=== PATIENT | male | born 1990 | race Caucasian/White ===

== ENCOUNTER 2017-12-10 15:54 | Emergency (ER) | payer OTHER ==
[2017-12-10 16:05] VITALS: Ht 175.3 cm
[2017-12-10 16:52] LABS: BASOPHIL % 0.3 % (0-2); PLATELET COUNT 284 x10^3mcL (130-400); RED CELL DISTRIBUTION WIDTH 13.4 % (11.5-14.5)
[2017-12-10 17:00] LABS: CALCIUM 8.8 mg/dL (8.5-10.1); CARBON DIOXIDE 29.3 mmol/L (21-32); CHLORIDE SERUM 102 mmol/L (98-107); GFR1 > 60 mL/min; GLUCOSE SERUM 102 mg/dL (74-106); SODIUM SERUM 139 mmol/L (136-145)
[2017-12-10 17:05] LABS: ALBUMIN 4.2 g/dL (3.4-5.0); ALKALINE PHOSPHATASE 74 U/L (46-116); ALT/SGPT 137 U/L (16-63); AMYLASE 49 U/L (25-115); AST/SGOT 48 U/L (15-37); BILIRUBIN TOTAL 0.3 mg/dL (0.20-1.00); LIPASE 110 IU/L (73-393); TOTAL PROTEIN, SERUM 8.4 g/dL (6.4-8.2)
[2017-12-10 19:05] VITALS: BP 141/80
== END 2017-12-10 19:05 | disposition home or self-care (01) ==
LOC: ED 15:54
PROVIDERS: Emergency Medicine
DX: N13.2 Hydronephrosis with renal and ureteral calculous obstruction (principal)
CPT/HCPCS: J1885; J2405; J3010; J7030

== ENCOUNTER 2019-04-05 12:07 | Emergency (ER) | payer OTHER ==
[~2019-04-05] VITALS: Ht 172.7 cm; Wt 98.9 kg
[2019-04-05 12:41] VITALS: Ht 172.7 cm; Wt 98.9 kg
[2019-04-05 13:27] LABS: BASOPHIL % 0.3 % (0-2); PLATELET COUNT 275 x10^3mcL (130-400); RED CELL DISTRIBUTION WIDTH 13.4 % (11.5-14.5)
[2019-04-05 13:28] LABS: CALCIUM 8.9 mg/dL (8.5-10.1); CARBON DIOXIDE 28.6 mmol/L (21-32); CHLORIDE SERUM 102 mmol/L (98-107); CREATININE SERUM 0.8 mg/dL (0.7-1.3); GFR1 > 60 mL/min; GLUCOSE SERUM 94 mg/dL (74-106); POTASSIUM SERUM 3.8 mmol/L (3.5-5.1); SODIUM SERUM 140 mmol/L (136-145)
[2019-04-05 13:30] LABS: ALBUMIN 4.3 g/dL (3.4-5.0); ALKALINE PHOSPHATASE 64 U/L (46-116); ALT/SGPT 101 U/L (16-63); AST/SGOT 27 U/L (15-37); BILIRUBIN TOTAL 0.3 mg/dL (0.20-1.00)
[2019-04-05 13:31] LABS: TOTAL PROTEIN, SERUM 8.3 g/dL (6.4-8.2)
[2019-04-05 14:07] LABS: microscopic required? NO
[2019-04-05 14:24] LABS: urine erythrocyte NEGATIVE (NEGATIVE)
[2019-04-05 14:39] LABS: AMPHETAMINE QUAL UR NONE DETECTED (See below)
[2019-04-06 09:46] VITALS: BP 142/71
== END 2019-04-06 09:45 | disposition short-term general hospital (02) ==
LOC: ED 12:07
PROVIDERS: Emergency Medicine
DX: F32.9 Major depressive disorder, single episode, unspecified (principal); F17.210 Nicotine dependence, cigarettes, uncomplicated; J45.909 Unspecified asthma, uncomplicated; R11.2 Nausea with vomiting, unspecified
CPT/HCPCS: 36415; 99406; G0480